=== PATIENT | male | born 1970 | race American Indian/Alaskan Native ===

== ENCOUNTER 2021-08-20 15:25 | Emergency (ER) | payer SELFPAY ==
--- NOTE | 2021-08-20 16:13 | Event Note ---
ED Screening Note ED Screening Note: CP -TIGHT TO LEFT ARM SOB NAUSEA/DIARRHEA MOM HAS HAD ACS PMH HTN- OFF MEDS RX NONE PSH ARM CIG ETOH This initial assessment/diagnostic orders/clinical plan/treatment(s) is/are subject to change based on patients health status, clinical progression and re- assessment by fellow clinical providers in the ED. Further treatment and workup at subsequent clinical providers discretion. Patient/guardian urged not to elope from the ED as their condition may be serious if not clinically assessed and managed. Initial orders include: RO ACS
[2021-08-20 17:03] LABS: Basophils # (Auto) 0.1 K/mm3 (0.0-0.1); Basophils % (Auto) 0.7 % (0.0-1.8); Eosinophils % (Auto) 0.4 % (0.0-4.3); Hematocrit 54.2 % (35.5-45.6); Hemoglobin 18.1 gm/dl (11.8-15.2); Lymphocytes # (Auto) 1.4 K/mm3 (1.2-5.4); Lymphocytes % (Auto) 10.2 % (13.4-35.0); Mean Corpuscular HGB Conc 33 % (32-34); Mean Corpuscular Volume 92 fl (84-94); Monocytes # (Auto) 1.7 K/mm3 (0.0-0.8); Monocytes % (Auto) 12.8 % (0.0-7.3); Platelet Count 316 K/mm3 (140-440); Red Blood Count 5.93 M/mm3 (3.65-5.03); Red Cell Distribution Width 14.7 % (13.2-15.2)
[2021-08-20 17:32] LABS: Alanine Aminotransferase 33 units/L (7-56); Albumin 4.9 g/dL (3.9-5); BUN/Creatinine Ratio 14; Blood Urea Nitrogen 13 mg/dL (9-20); Calcium 9.5 mg/dL (8.4-10.2); Hemolysis Index 37
--- NOTE | 2021-08-20 17:37 | XRay Report ---
CHEST 2 VIEWS INDICATION / CLINICAL INFORMATION: CHEST PAIN. FINDINGS: SUPPORT DEVICES: None. HEART / MEDIASTINUM: No significant abnormality. LUNGS / PLEURA: No significant pulmonary or pleural abnormality. No pneumothorax. ADDITIONAL FINDINGS: No significant additional findings. IMPRESSION: 1. No acute findings. Signer Name: Abran Terrazas MD Signed: 08/20/2021 5:33 PM Workstation Name: [id number]
[2021-08-20 18:37] LABS: Bilirubin,Urine NEG (Negative); Blood,Urine MOD (Negative); Color,Urine Yellow (Yellow); Mucus,Urine FEW /HPF; Protein,Urine <15 mg/dL mg/dL (Negative); Urobilinogen,Urine < 2.0 mg/dL (<2.0)
--- NOTE | 2021-08-20 18:56 | Emergency Department Report ---
ED General Adult HPI - General Chief complaint: Nausea/Vomiting/Diarrhea Stated complaint: SINUS, LT ARM TIGHTNESS SORENESS Time Seen by Provider: 08/20/21 16:50 Source: patient Mode of arrival: Ambulatory Limitations: No Limitations - History of Present Illness Initial comments: 51-year-old male presents to ED with fever, headache, nausea, diarrhea, urinary frequency x4 days. Patient also reports some soreness to left shoulder with movement as well. Patient denies any chest pain, shortness of breath, cough. Patient states he was tested for COVID-19 on yesterday, states test was negative. -: days(s) (4) Quality: aching Consistency: intermittent Improves with: none Worsens with: none Associated Symptoms: fever/chills, headaches, nausea/vomiting, weakness. denies: chest pain, cough, shortness of breath - Related Data Home Medications Medication Instructions Recorded Confirmed Last Taken lisinopriL [Lisinopril] 10 mg PO QDAY 08/20/21 08/20/21 Unknown Previous Rx's Medication Instructions Recorded Last Taken Type cephALEXin [Keflex] 500 mg PO Q12HR #6 cap 08/20/21 Unknown Rx traMADoL [Ultram] 50 mg PO Q6HR PRN #7 tablet 08/20/21 Unknown Rx Allergies Allergy/AdvReac Type Severity Reaction Status Date / Time No Known Allergies Allergy Verified 08/20/21 16:11 ED Review of Systems ROS: Stated complaint: SINUS, LT ARM TIGHTNESS SORENESS Other details as noted in HPI Comment: All other systems reviewed and negative Constitutional: chills, fever Respiratory: denies: cough, shortness of breath Cardiovascular: denies: chest pain Gastrointestinal: nausea, diarrhea. denies: vomiting Musculoskeletal: arthralgia Neurological: headache ED Past Medical Hx - Past Medical History Hx Hypertension: Yes - Medications Home Medications: Home Medications Medication Instructions Recorded Confirmed Last Taken Type cephALEXin [Keflex] 500 mg PO Q12HR #6 cap 08/20/21 Unknown Rx lisinopriL [Lisinopril] 10 mg PO QDAY 08/20/21 08/20/21 Unknown History traMADoL [Ultram] 50 mg PO Q6HR PRN #7 tablet 08/20/21 Unknown Rx ED Physical Exam - General Limitations: No Limitations General appearance: alert, in no apparent distress - Head Head exam: Present: atraumatic, normocephalic - Eye Eye exam: Present: normal appearance, EOMI - ENT ENT exam: Present: mucous membranes moist, other (No sinus tenderness on exam) - Neck Neck exam: Present: normal inspection, full ROM. Absent: tenderness, menin gismus - Respiratory Respiratory exam: Present: normal lung sounds bilaterally. Absent: respiratory distress - Cardiovascular Cardiovascular Exam: Present: regular rate, normal rhythm - GI/Abdominal GI/Abdominal exam: Present: soft. Absent: distended, tenderness - Extremities Exam Extremities exam: Present: normal inspection - Neurological Exam Neurological exam: Present: alert, oriented X3 - Psychiatric Psychiatric exam: Present: normal affect, normal mood - Skin Skin exam: Present: warm, dry, intact, normal color ED Course Vital Signs 08/20/21 08/20/21 16:08 19:38 Temperature 100.3 F H 98.5 F Pulse Rate 64 64 Respiratory 18 18 Rate Blood Pressure 165/91 Blood Pressure 166/103 [Left] O2 Sat by Pulse 98 90 Oximetry ED Medical Decision Making - Lab Data Result diagrams: 08/20/21 16:40 08/20/21 16:40 - Radiology Data Radiology results: report reviewed, image reviewed - Medical Decision Making 51-year-old male presents to ED with fever, headache, nausea, diarrhea, urinary frequency, left shoulder pain x4 days. Patient is negative for COVID-19 yesterday. Here in the ED patient has a low-grade fever of 100.3. Mild leukocytosis. Chest x-ray is normal. Flu swabs are negative. Patient reports some urinary frequency and UA does show slight pyuria. Will treat with antibiotics. This may be the cause of patient's fever. Vital signs have improved. Patient be discharged at this time. Outpatient follow-up advised, return precautions given. - Differential Diagnosis Flu, COVID-19, UTI, viral illness Critical care attestation.: If time is entered above; I have spent that time in minutes in the direct care of this critically ill patient, excluding procedure time. ED Disposition Clinical Impression: Viral illness, UTI (urinary tract infection) Disposition: HOME / SELF CARE / HOMELESS Is pt being admited?: No Condition: Stable Instructions: Urinary Tract Infection, Adult, Viral Illness, Adult Prescriptions: cephALEXin [Keflex] 500 mg PO Q12HR #6 cap traMADoL [Ultram] 50 mg PO Q6HR PRN #7 tablet PRN Reason: Pain Referrals: [facility] [Provider Group] - 3-5 Days Time of Disposition: 19:05
[2021-08-20 20:03] VITALS: BP 165/91
--- NOTE | 2021-08-21 11:57 | Electrocardiograph Report ---
[facility] Test Date: 2021-08-20 Test Time: 16:54:28 Pat Name: YURIY VILLANUEVA Department: Room: Gender: M Foreign Diplomat: : 1970 Requested By: CARLA MAC Order Number: [id number] Reading MD: Peter Ritter Measurements Intervals [place] Rate: 61 P: 66 NC: 120 QRS: 63 QRSD: 97 T: 14 QT: 396 QTc: 400 Interpretive Statements Sinus rhythm Borderline inferior Q waves No previous ECG available for comparison Electronically Signed On 08-21-2021 11:57:15 EST by Peter Ritter
== END 2021-08-20 18:43 | disposition home or self-care (01) ==
LOC: ED 15:25
DX: B34.9 Viral infection, unspecified (principal); N39.0 Urinary tract infection, site not specified; Z79.899 Other long term (current) drug therapy
CPT/HCPCS: 36415; 71046; 80053; 81001; 83690; 84484; 85025; 87086; 87400; 93005; 99284

== ENCOUNTER 2021-08-25 11:31 | Emergency (ER) | payer SELFPAY ==
--- NOTE | 2021-08-25 11:41 | Emergency Department Report ---
ED Male HPI - General Chief complaint: Urogenital-Male Stated complaint: PAINFUL URINATION Time Seen by Provider: 08/25/21 11:38 Source: patient Mode of arrival: Ambulatory Limitations: No Limitations - History of Present Illness MD Complaint: dysuria - Related Data Home Medications Medication Instructions Recorded Confirmed Last Taken lisinopriL [Lisinopril] 10 mg PO QDAY 08/20/21 08/20/21 Unknown Previous Rx's Medication Instructions Recorded Last Taken Type cephALEXin [Keflex] 500 mg PO Q12HR #6 cap 08/20/21 Unknown Rx traMADoL [Ultram] 50 mg PO Q6HR PRN #7 tablet 08/20/21 Unknown Rx Allergies Allergy/AdvReac Type Severity Reaction Status Date / Time No Known Allergies Allergy Verified 08/20/21 16:11 ED Review of Systems ROS: Stated complaint: PAINFUL URINATION Other details as noted in HPI ED Past Medical Hx - Past Medical History Hx Hypertension: Yes - Medications Home Medications: Home Medications Medication Instructions Recorded Confirmed Last Taken Type cephALEXin [Keflex] 500 mg PO Q12HR #6 cap 08/20/21 Unknown Rx lisinopriL [Lisinopril] 10 mg PO QDAY 08/20/21 08/20/21 Unknown History traMADoL [Ultram] 50 mg PO Q6HR PRN #7 tablet 08/20/21 Unknown Rx ED Physical Exam - General Limitations: No Limitations ED Course Vital Signs 08/25/21 11:33 Temperature 98.2 F Pulse Rate 76 Respiratory 16 Rate Blood Pressure 126/76 [Left] O2 Sat by Pulse 98 Oximetry Critical care attestation.: If time is entered above; I have spent that time in minutes in the direct care of this critically ill patient, excluding procedure time. ED Disposition Condition: Stable
--- NOTE | 2021-08-25 11:51 | Emergency Department Report ---
ED General Adult HPI - General Chief complaint: Urogenital-Male Stated complaint: PAINFUL URINATION Time Seen by Provider: 08/25/21 11:38 Source: patient Mode of arrival: Ambulatory Limitations: No Limitations - History of Present Illness Initial comments: Patient presents in follow-up for concerns over a recent visit. He had been seen here recently and told that he had a urinary tract infection. He was placed on Keflex. He was given tramadol for headache. He is still having a bitemporal pounding headache. He has had visual scotomata. There is no history of head trauma. He denies double vision. He states that he does not know what is going on. He really did not want to take the tramadol, but he did it due to the pain. The headache was not thunderclap in onset. It was not a maximum intensity at the time of onset. Patient has not had any change in his hearing. He has no neck pain or fever. He states that he does not have dysuria and did not have dysuria. He was not sure why he was told that he had a urinary infection when he had no symptoms. Patient states that he did take all of the antibiotics. He is concerned that he could have had a urinary infection because several of his friends reported headaches when they had a UTI. Regardless, patient states and repeats that he did not have any urinary symptoms. - Related Data Home Medications Medication Instructions Recorded Confirmed Last Taken lisinopriL [Lisinopril] 10 mg PO QDAY 08/20/21 08/20/21 Unknown Previous Rx's Medication Instructions Recorded Last Taken Type Butalb/Acetaminophen/Caffeine 1 cap PO Q6HR PRN #20 cap 08/25/21 Unknown Rx [Fioricet 50-300-40 mg CAP] Allergies Allergy/AdvReac Type Severity Reaction Status Date / Time No Known Allergies Allergy Verified 08/20/21 16:11 ED Review of Systems ROS: Stated complaint: PAINFUL URINATION Other details as noted in HPI Comment: All other systems reviewed and negative Constitutional: denies: fever Eyes: other (No diplopia) ENT: denies: throat pain Respiratory: denies: cough Cardiovascular: denies: chest pain Endocrine: denies: unexplained weight loss Gastrointestinal: denies: abdominal pain Genitourinary: denies: dysuria Musculoskeletal: denies: back pain Skin: denies: rash Neurological: as per HPI Hematological/Lymphatic: denies: easy bruising ED Past Medical Hx - Past Medical History Hx Hypertension: Yes - Family History Family history: hypertension - Medications Home Medications: Home Medications Medication Instructions Recorded Confirmed Last Taken Type lisinopriL [Lisinopril] 10 mg PO QDAY 08/20/21 08/20/21 Unknown History Butalb/Acetaminophen/Caffeine 1 cap PO Q6HR PRN #20 cap 08/25/21 Unknown Rx [Fioricet 50-300-40 mg CAP] ED Physical Exam - General Limitations: No Limitations, Other (Pulse ox noted and normal) General appearance: alert, in no apparent distress - Head Head exam: Present: atraumatic, normocephalic, normal inspection - Eye Eye exam: Present: normal appearance, PERRL, EOMI. Absent: scleral icterus, conjunctival injection - ENT ENT exam: Present: normal exam, normal orophraynx, normal external ear exam - Neck Neck exam: Present: normal inspection. Absent: meningismus - Respiratory Respiratory exam: Present: normal lung sounds bilaterally. Absent: respiratory distress - Cardiovascular Cardiovascular Exam: Present: regular rate, normal rhythm - GI/Abdominal GI/Abdominal exam: Present: soft. Absent: distended, tenderness - Extremities Exam Extremities exam: Present: normal capillary refill - Back Exam Back exam: Absent: CVA tenderness (R), CVA tenderness (L) - Neurological Exam Neurological exam: Present: alert, oriented X3, CN II-XII intact, normal gait, reflexes normal. Absent: motor sensory deficit - Psychiatric Psychiatric exam: Present: normal affect, normal mood - Skin Skin exam: Present: warm, dry ED Course Vital Signs 08/25/21 11:33 Temperature 98.2 F Pulse Rate 76 Respiratory 16 Rate Blood Pressure 126/76 [Left] O2 Sat by Pulse 98 Oximetry - Reevaluation(s) Reevaluation #1: 08/25/21 11:50 CT ordered. Old records noted. Reevaluation #2: 08/25/21 14:00 CT is pending. Reevaluation #3: 08/25/21 15:09 CT was noted. Patient was discharged. ED Medical Decision Making - Medical Decision Making Patient presents with follow-up for recent ED visit. Clinically, I am not concerned for urinary tract infection. I did review the UA. He does not have any symptoms suggestive of UTI. This would be an asymptomatic bacteriuria at best. I do not believe further antibiotic therapy would be necessary. He did r eport having a global headache. There is no evidence of tumor or mass on CT. There is no obvious stroke. There is no bleed. He had no abrupt onset of headache. It was not maximum intensity at the time of onset. He has no first- degree relative with an aneurysm. I do not believe this represents aneurysm. He certainly has no meningeal signs. He will be treated symptomatically and referred for outpatient evaluation. Critical Care Time: No Critical care attestation.: If time is entered above; I have spent that time in minutes in the direct care of this critically ill patient, excluding procedure time. ED Disposition Clinical Impression: Acute headache Qualifiers: Headache type: unspecified Intractability: not intractable Qualified Code(s): R51.9 - Headache, unspecified Disposition: 01 HOME / SELF CARE / HOMELESS Is pt being admited?: No Condition: Stable Instructions: Form - Headache Record, General Headache Without Cause Additional Instructions: Drink plenty water. Return for problems. Follow-up with your regular physician for recheck and further management. Continue home medication. Do not drive after taking pain medication. Prescriptions: Butalb/Acetaminophen/Caffeine [Fioricet 50-300-40 mg CAP] 1 cap PO Q6HR PRN #20 cap PRN Reason: Headache Referrals: PRIMARY CARE, [Referring] - 3-5 Days LUCAS FROST MD [Staff Physician] - 3-5 Days
--- NOTE | 2021-08-25 14:34 | Cat Scan Report ---
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 TECHNIQUE: Routine CT head without contrast. All CT scans at this location are performed using CT dos e reduction for ALARA by means of automated exposure control. COMPARISON: None. FINDINGS: BRAIN / INTRACRANIAL CONTENTS: No acute hemorrhage, mass effect, midline shift, hydrocephalus, or acu te, large territorial infarct. No signs of significant atrophy or chronic infarct. No significant whi te matter abnormality seen. CRANIOCERVICAL JUNCTION: No significant abnormality. ORBITS: No significant abnormality of visualized orbits. SINUSES / MASTOIDS: Visualized paranasal sinuses and mastoid air cells are essentially clear. ADDITIONAL FINDINGS: None. IMPRESSION: 1. No focal mass, hemorrhage, hydrocephalus, or acute, large territorial infarct. Signer Name: Chip Osorio MD, III Signed: 08/25/2021 2:29 PM Workstation Name: [id number]
[2021-08-25 15:33] VITALS: BP 168/84
== END 2021-08-25 15:45 | disposition home or self-care (01) ==
LOC: ED 11:31
DX: R51.9 Headache, unspecified (principal); I10 Essential (primary) hypertension
CPT/HCPCS: 36415; 70450; 85652; 99284

== ENCOUNTER 2022-02-06 06:16 | Emergency (ER) | payer SELFPAY ==
--- NOTE | 2022-02-06 08:26 | XRay Report ---
RIGHT HAND 2 VIEWS INDICATION / CLINICAL INFORMATION: pain and swelling. COMPARISON: None available. FINDINGS: BONES / JOINT(S): No acute fracture or subluxation. No significant arthritis. SOFT TISSUES: No significant abnormality. ADDITIONAL FINDINGS: None. Signer Name: Torsten Collier MD Signed: 02/06/2022 8:21 AM Workstation Name: [id number]
--- NOTE | 2022-02-06 09:05 | Emergency Department Report ---
Upper Extremity - HPI Chief Complaint: Extremity Injury, Upper Stated Complaint: HAND INJURY Time Seen by Provider: 02/06/22 09:00 Upper Extremity: Right Index Finger, Right Middle Finger, Right Ring Finger Occurred When: >5 Days Mechanism: Other (exposure to extreme cold temperatures several times over the past 2 weeks. ) Symptoms: Yes Pain with Movement, Yes Numbness, No Deformity, No Limited Range of Movement, No Weakness, No Swelling, No Bruising/Ecchymosis, No Laceration or Abrasion Other History: 51 yo black male with no pmh presents to ed for evaluation of possible tobias bite to right 2nd through 4th fingers. 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 He states that despite the fact that he wears gloves, he has been having pain to fingers that gets worse everytime he goes to work. He states that he also has some tingling and numbness to fingers intermittently. ED Review of Systems ROS: Stated complaint: HAND INJURY Other details as noted in HPI Comment: All other systems reviewed and negative Constitutional: denies: chills, fever Respiratory: denies: SOB with exertion Cardiovascular: denies: chest pain, palpitations, dyspnea on exertion Gastrointestinal: denies: abdominal pain, nausea, vomiting Musculoskeletal: denies: back pain Neurological: denies: headache ED Past Medical Hx - Past Medical History Hx Hypertension: Yes - Medications Home Medications: Home Medications Medication Instructions Recorded Confirmed Last Taken Type lisinopriL [Lisinopril] 10 mg PO QDAY 08/20/21 08/20/21 Unknown History Butalb/Acetaminophen/Caffeine 1 cap PO Q6HR PRN #20 cap 08/25/21 Unknown Rx [Fioricet 50-300-40 mg CAP] Naproxen [Naprosyn] 500 mg PO BID #14 tab 02/06/22 Unknown Rx Upper Extremity Exam - Exam General: Vital signs noted. No distress. Alert and acting appropriately. Head and Torso: No HEENT Abnormality, No Neck Tenderness, No Chest/Lungs Abnormality, No Abdominal Tenderness, No Back Tenderness Shoulder Exam: No Shoulder Tenderness, No Clavicle Tenderness Arm Exam: No Arm/Humerus Tenderness Elbow: No Elbow Tenderness Forearm: No Forearm Tenderness Wrist: No Wrist Tenderness Hand: Yes Hand Tenderness, Yes Digit Tenderness, Yes Normal ROM in Digit(s), No Hand Deformity, No Digit(s) Deformity, No Tendon Dysfunction CMS Exam: Yes Normal Distal Pulses, Yes Normal Capillary Refill, No Broken Skin, No Normal Distal Sensation (intermittent numbness and tingling in right 2-4th fingers. ) Hand L/R Front: 1 - minimal tenderness and darkening with no open skin ED Course Vital Signs 02/06/22 06:20 Temperature 98.7 F Pulse Rate 85 Respiratory 20 Rate Blood Pressure 154/102 [Right] O2 Sat by Pulse 100 Oximetry ED Medical Decision Making - Medical Decision Making 51 yo black male with no pmh presents to ed for evaluation of possible tobias bite to right 2nd through 4th fingers. 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 He states that despite the fact that he wears gloves, he has been having pain to fingers that gets worse everytime he goes to work. He states that he also has some tingling and numbness to fingers intermittently. Noted to have some tenderness to fingers on exam but no frostbite. Patient will be treated with 7 day coarse of Naproxen and advised to consider warmer area to work in. He is advised to take medications as prescribed and follow up with pcp if no improvement or worsening symptoms. He verbalized understanding of and agreement with plan of care. Critical care attestation.: If time is entered above; I have spent that time in minutes in the direct care of this critically ill patient, excluding procedure time. ED Disposition Clinical Impression: Pain in right finger(s) Disposition: 01 HOME / SELF CARE / HOMELESS Is pt being admited?: No Does the pt Need Aspirin: No Condition: Stable Instructions: Frostbite, [id number] Additional Instructions: Take medications as prescribed. Follow-up with primary care provider if no improvement or worsening symptoms. Prescriptions: Naproxen [Naprosyn] 500 mg PO BID #14 tab Referrals: LUCAS FROST MD [Primary Care Provider] - 3-5 Days Forms: Work/School Release Form(ED) Time of Disposition: 09:05
[2022-02-06 10:41] VITALS: BP 141/58
== END 2022-02-06 10:40 | disposition home or self-care (01) ==
LOC: ED 06:16
DX: M79.644 Pain in right finger(s) (principal); I10 Essential (primary) hypertension
CPT/HCPCS: 99283